=== PATIENT | male | born 1955 | race African-American/Black ===

== ENCOUNTER 2016-12-25 14:01 | Emergency (ER) | payer OTHER ==
[2016-12-25 14:20] VITALS: RESP 20
--- NOTE | 2016-12-25 16:00 | ED ---
Male Urogenital HPI - General Chief complaint: Urogenital Stated complaint: urine bag clogged Time Seen by Provider: 12/25/16 15:25 Source: patient, RN notes reviewed Mode of arrival: ambulatory Limitations: no limitations - History of Present Illness Initial comments: This is a 61-year-old male with a history of a TURP on the first of this month who still has an indwelling catheter that is to remain until the who presents with complaints of decreased urine output as well as some suprapubic discomfort and pressure. He denies any fevers chills or sweats he denies any nausea or vomiting. Per his was some issue with the catheter were did not appear to be draining properly initially. No blood is reported in the urine. No back pain no other symptoms. He was on oxybutynin has not been on it recently he is concerned he may be having some spasms. MD Complaint: other - Related Data Home Medications Medication Instructions Recorded Confirmed Benztropine Mesylate 0.5 mg PO HS 12/25/16 12/25/16 Propranolol [Inderal] 10 mg PO BID 12/25/16 12/25/16 Risperdal Consta(Unknown) 1 dose IM Q30D 12/25/16 12/25/16 traZODone HCL 100 mg PO HS 12/25/16 12/25/16 Previous Rx's Medication Instructions Recorded Oxybutynin ER [Ditropan Xl] 10 mg PO DAILY #3 tab.er.24 12/25/16 Allergies Allergy/AdvReac Type Severity Reaction Status Date / Time No Known Allergies Allergy Verified 12/25/16 15:36 Review of Systems ROS Statement: Those systems with pertinent positive or pertinent negative responses have been documented in the HPI. ROS Other: All systems not noted in ROS Statement are negative. Past Medical History Past Medical History: Cancer, COPD, Prostate Disorder Additional Past Medical History / Comment(s): bladder cancer, lung cancer History of Any Multi-Drug Resistant Organisms: None Reported Additional Past Surgical History / Comment(s): TURP Past Psychological History: No Psychological Hx Reported Smoking Status: Current every day smoker Past Alcohol Use History: None Reported Past Drug Use History: None Reported General Exam - General Exam Comments Initial Comments: This is a well-developed well-nourished awake alert oriented 3 male Limitations: no limitations General appearance: alert, in no apparent distress Head exam: Present: atraumatic, normocephalic, normal inspection Eye exam: Present: normal appearance, PERRL, EOMI. Absent: scleral icterus, conjunctival injection, periorbital swelling ENT exam: Present: normal exam, mucous membranes moist Neck exam: Present: normal inspection. Absent: tenderness, meningismus, lymphadenopathy Respiratory exam: Present: normal lung sounds bilaterally. Absent: respiratory distress, wheezes, rales, rhonchi, stridor Cardiovascular Exam: Present: regular rate, normal rhythm, normal heart sounds. Absent: systolic murmur, diastolic murmur, rubs, gallop, clicks GI/Abdominal exam: Present: soft, normal bowel sounds, other (No evidence at this time of a distended bladder). Absent: distended, tenderness, guarding, rebound, rigid Rectal exam: Present: deferred exam: Present: other (The patient does demonstrate normal circumcised male genitalia with a Sanford catheter in place. No evidence of any drainage or discharge or about the catheter.). Absent: testicular tenderness, scrotal swelling Extremities exam: Present: normal inspection, full ROM, normal capillary refill. Absent: tenderness, pedal edema, joint swelling, calf tenderness Back exam: Present: normal inspection Neurological exam: Present: alert, oriented X3, CN II-XII intact Psychiatric exam: Present: normal affect, normal mood Skin exam: Present: warm, dry, intact, normal color. Absent: rash Course Vital Signs 12/25/16 14:17 Temperature 98.1 F Pulse Rate 61 Respiratory 20 Rate Blood Pressure 143/77 O2 Sat by Pulse 99 Oximetry Medical Decision Making - Medical Decision Making I did discuss findings with the patient has . Patient will be discharged he does not have any oxybutynin he will get a dose emergency department and a prescription for enough to last for gets home in 3 days. He is from [place]. - Lab Data Lab Results 12/25/16 Range/Units 15:45 Urine Color Yellow Urine Appearance Cloudy (Clear) Urine pH 6.5 (5.0-8.0) Ur Specific [place] 1.017 (1.001-1.035) Urine Protein 2+ H (Negative) Urine Glucose (UA) Negative (Negative) Urine Ketones Negative (Negative) Urine Blood Large H (Negative) Urine Nitrite Negative (Negative) Urine Bilirubin Negative (Negative) Urine Urobilinogen 4.0 (<2.0) mg/dL Ur Leukocyte Esterase Moderate H (Negative) Urine RBC >182 H (0-5) /hpf Urine WBC 47 H (0-5) /hpf Urine Mucus Occasional H (None) /hpf Disposition Clinical Impression: Bladder spasm, Sanford catheter problem Disposition: HOME SELF-CARE Condition: Good Instructions: Sanford Catheter Placement and Care (ED) Prescriptions: Oxybutynin ER [Ditropan Xl] 10 mg PO DAILY #3 tab.er.24 Referrals: Nonstaff,Physician [Primary Care Provider] - 1-2 days
[2016-12-25 16:01] LABS: Appearance,Urine Cloudy (Clear); Bilirubin,Urine Negative (Negative); Glucose,Urine (UA) Negative (Negative); Ketones,Urine Negative (Negative); Leukocyte Esterase,Urine Moderate (Negative); Mucus,Urine Occasional /hpf; Nitrite,Urine Negative (Negative); PH, Urine 6.5 (5.0-8.0); Particle Count 6292; Protein,Urine 2+ (Negative); RBC,Urine >182 /hpf (0-5); Specific Gravity,Urine 1.017 (1.001-1.035); UA Billing (MACRO vs. MICRO) MICRO; WBC,Urine 47 /hpf (0-5)
[2016-12-25] MEDS ORDERED: OXYBUTYNIN CHLORIDE 5 MG TAB PO STA (16:55)
[2016-12-25 17:17] VITALS: BP 139/77; PULSE 84; TEMP 98.5
== END 2016-12-25 17:17 | disposition home or self-care (01) ==
LOC: EC 14:01
DX: T83.091A Other mechanical complication of indwelling urethral catheter, initial encounter (principal); N32.89 Other specified disorders of bladder; F17.200 Nicotine dependence, unspecified, uncomplicated; Z79.899 Other long term (current) drug therapy; Z85.51 Personal history of malignant neoplasm of bladder; Z90.79 Acquired absence of other genital organ(s)
CPT/HCPCS: 51798; 81001; 99284